=== PATIENT | female | born 2000 | race Caucasian/White ===

== ENCOUNTER 2019-04-28 19:46 | Emergency (ER) | payer OTHER ==
--- NOTE | 2019-04-28 20:11 | ER Document Report ---
ED Medical Screen (RME) - General Chief Complaint: Breathing Difficulty Stated Complaint: DIFFICULTY BREATHING/CHEST TIGHTNESS Time Seen by Provider: 04/28/19 20:05 Primary Care Provider: ROMEL KAY NP [Primary Care Provider] - Follow up as needed Mode of Arrival: Ambulatory Information source: Patient Notes: Patient presents complaining of difficulty breathing and chest discomfort. Patient reports mild cough. Patient states pain does radiate through to her back. No fever nausea vomiting or diarrhea. Patient scribes the pain as a pressure. hx: Asthma, cholecystectomy TRAVEL OUTSIDE OF THE [place] IN LAST 30 DAYS: No - Related Data Allergies/Adverse Reactions: amoxicillin [Amoxicillin] Allergy (Severe, Verified 04/07/14 04:17) Hives Home Medications: albuterol inhaler Past Medical History Pulmonary Medical History: Reports: Hx Asthma Psychiatric Medical History: Reports: Hx Attention Deficit Hyperactivity Disorder - Immunizations Immunizations up to date: Yes Physical Exam - Vital signs Vitals: Temp Pulse Resp BP Pulse Ox 97.9 F 87 20 150/84 H 97 04/28/19 19:51 04/28/19 19:51 04/28/19 19:51 04/28/19 19:51 04/28/19 19:51 - Respiratory Respiratory status: No respiratory distress Chest status: Pain with deep breathing Breath sounds: Normal. No: Rales, Rhonchi, Stridor, Wheezing Course - Vital Signs Vital signs: Temp Pulse Resp BP Pulse Ox 97.9 F 87 20 150/84 H 97 04/28/19 19:51 04/28/19 19:51 04/28/19 19:51 04/28/19 19:51 04/28/19 19:51 Doctor's Discharge - Discharge Referrals: ROMEL KAY NP [Primary Care Provider] - Follow up as needed
--- NOTE | 2019-04-28 21:01 | RADIOLOGY REPORT (SQ) ---
EXAM DESCRIPTION: Chest x-ray PA lateral CLINICAL HISTORY: 18 years Female, cp COMPARISON: 02/02/2014. FINDINGS: Borderline heart size. Mediastinum not widened. No acute lung pleural bone abnormalities.. IMPRESSION: Borderline heart size. No obvious acute findings.
--- NOTE | 2019-04-28 22:29 | EKG REPORT ---
SEVERITY:- NORMAL ECG - SINUS RHYTHM : Confirmed by: Maddie Martin MD 28-Apr-2019 22:28:45
[2019-04-28] MEDS ORDERED: LIDOCAINE 2% VISCOUS SOLN 20 ML UDCUP PO ONE (22:30)
[2019-04-28] MEDS ORDERED: METOCLOPRAMIDE HCL ORAL SOLN 10 MG/10 ML UDCUP PO ONE (22:30)
[2019-04-28] MEDS ORDERED: MAG HYDROX/AL HYDROX/SIMETH SUSP 30 ML UDCUP PO ONE (22:30)
--- NOTE | 2019-04-28 22:30 | ER Document Report ---
HPI - HPI Time Seen by Provider: 04/28/19 20:05 Pain Level: 2 Notes: Patient presents complaining of difficulty breathing and chest discomfort. Patient reports mild cough. Patient states pain does radiate through to her back. No fever nausea vomiting or diarrhea. Patient scribes the pain as a pressure. - REPRODUCTIVE Reproductive: DENIES: : Past Medical History - General Information source: Patient - Social History Smoking Status: Never Smoker Family History: Reviewed & Not Pertinent, Other - Cholelithiasis Patient has suicidal ideation: No Patient has homicidal ideation: No Pulmonary Medical History: Reports: Hx Asthma Psychiatric Medical History: Reports: Hx Attention Deficit Hyperactivity Disorder Past Surgical History: Reports: Hx Cholecystectomy - Immunizations Immunizations up to date: Yes Vertical Provider Document - CONSTITUTIONAL Notes: PHYSICAL EXAMINATION: GENERAL: Well-appearing, morbidly obese well-nourished and in no acute distress. HEAD: Atraumatic, normocephalic. EYES: Pupils equal round and reactive to light, extraocular movements intact, conjunctiva are normal. ENT: Nares patent, oropharynx clear without exudates. Moist mucous membranes. NECK: Normal range of motion, supple without lymphadenopathy LUNGS: Breath sounds clear to auscultation bilaterally and equal. No wheezes rales or rhonchi. HEART: Regular rate and rhythm without murmurs ABDOMEN: Soft, nontender, nondistended abdomen. No guarding, no rebound. No masses appreciated. Female : deferred Musculoskeletal: Normal range of motion, no pitting or edema. No cyanosis. NEUROLOGICAL: Cranial nerves grossly intact. Normal speech, normal gait. Normal sensory, motor exams PSYCH: Normal mood, normal affect. SKIN: Warm, Dry, normal turgor, no rashes or lesions noted. - INFECTION CONTROL TRAVEL OUTSIDE OF THE [place] IN LAST 30 DAYS: No Course - Re-evaluation Re-evalutation: Laboratory 04/29/19 04/29/19 04/29/19 01:10 01:10 01:10 WBC 12.5 H RBC 4.59 Hgb 13.5 Hct 39.2 MCV 85 MCH 29.4 MCHC 34.4 RDW 13.1 Plt Count 272 Lymph % (Auto) 25.8 [place] % (Auto) 8.1 Eos % (Auto) 2.7 Baso % (Auto) 0.4 Absolute Neuts (auto) 7.9 Absolute Lymphs (auto) 3.2 Absolute Monos (auto) 1.0 Absolute Eos (auto) 0.3 Absolute Basos (auto) 0.0 Seg Neutrophils % 63.0 D-Dimer 0.41 Sodium 140.4 Potassium 3.9 Chloride 109 H Carbon Dioxide 22 Anion Gap 9 BUN 9 Creatinine 0.70 Est GFR ( Amer) > 60 Est GFR (MDRD) Non-Af > 60 Glucose 122 H Calcium 8.7 Total Bilirubin 0.3 Direct Bilirubin 0.1 Neonat Total Bilirubin Not Reportable Neonat Direct Bilirubin Not Reportable Neonat Indirect Bili Not Reportable AST 18 ALT 16 Alkaline Phosphatase 56 Total Protein 7.3 Albumin 3.8 Chest X-Ray 04/28/19 20:09 IMPRESSION: Borderline heart size. No obvious acute findings. Patient's work-up today has been unremarkable. She is alert, oriented, vital signs within normal limits and she is not in any acute distress. We did try a GI cocktail to help with her symptoms which did not provide her with any relief. Was unable to rule her out via PERC criteria for pulmonary embolism so we did d raw a d-dimer which was negative. I did discuss with patient the borderline heart size on the chest x-ray. She will close follow-up with her primary care team. ED return precautions discussed. The patient's emergency department workup and current diagnosis were explained to the patient and or family. Follow-up instructions were provided. Medications if prescribed were discussed. Instructions for when to return to the emergency department including specific worrisome symptoms were discussed with the patient and/or family. - Vital Signs Vital signs: Temp Pulse Resp BP Pulse Ox 97.9 F 87 20 150/84 H 97 04/28/19 19:51 04/28/19 19:51 04/28/19 19:51 04/28/19 19:51 04/28/19 19:51 - Laboratory Result Diagrams: 04/29/19 01:10 04/29/19 01:10 Discharge - Discharge Clinical Impression: Epigastric pain Chest pain Qualifiers: Chest pain type: unspecified Qualified Code(s): R07.9 - Chest pain, unspecified Condition: Stable Disposition: HOME, SELF-CARE Additional Instructions: Your work-up here in the emergency department today was unremarkable. I have given you a copy of your labs and chest x-ray for you to follow-up with your primary care provider. Rest, drink plenty of fluids. Return to the emergency department for any new or worsening symptoms. Referrals: ROMEL KAY NP [Primary Care Provider] - Follow up as needed
[2019-04-28 22:38] VITALS: BP 115/77
[2019-04-29 01:34] LABS: ABSOLUTE EOSINOPHILS # (AUTO) 0.3 10^3/uL (0.0-0.6); ABSOLUTE LYMPHOCYTES (AUTO) 3.2 10^3/uL (0.5-4.7); ABSOLUTE NEUT (AUTO) 7.9 10^3/uL (1.7-8.2); BASOPHILS % (AUTO) 0.4 % (0-2); EOSINOPHILS % (AUTO) 2.7 % (0-6); HEMATOCRIT 39.2 % (36.0-47.0); HEMOGLOBIN 13.5 g/dL (12.0-15.5); LYMPHOCYTES % (AUTO) 25.8 % (13-45); MEAN CORPUSCULAR HEMOGLOBIN 29.4 pg (27.0-33.4); MEAN CORPUSCULAR HGB CONC 34.4 g/dL (32.0-36.0); MEAN CORPUSCULAR VOLUME 85 fl (80-97); MONOCYTES % (AUTO) 8.1 % (3-13); PLATELET COUNT 272 10^3/uL (150-450); RED BLOOD COUNT 4.59 10^6/uL (3.72-5.28); RED CELL DISTRIBUTION WIDTH 13.1 % (11.5-14.0); TOTAL CELLS COUNTED % (AUTO) 100 %; WHITE BLOOD COUNT 12.5 10^3/uL (4.0-10.5)
[2019-04-29 01:53] LABS: ALBUMIN 3.8 g/dL (3.7-5.6); ALKALINE PHOSPHATASE 56 U/L (50-135); ANION GAP 9 (5-19); ASPARTATE AMINO TRANSFERASE 18 U/L (5-30); BILIRUBIN,DIRECT 0.1 mg/dL (0.0-0.4); BILIRUBIN,TOTAL 0.3 mg/dL (0.2-1.3); BLOOD UREA NITROGEN 9 mg/dL (7-20); CALCIUM 8.7 mg/dL (8.4-10.2); CARBON DIOXIDE 22 mmol/L (22-30); CHLORIDE 109 mmol/L (98-107); GLUCOSE 122 mg/dL (75-110); POTASSIUM 3.9 mmol/L (3.6-5.0); TOTAL PROTEIN 7.3 g/dL (6.3-8.2)
== END 2019-04-29 02:23 | disposition home or self-care (01) ==
LOC: ER 19:46
DX: R10.13 Epigastric pain (principal); R07.9 Chest pain, unspecified; R06.02 Shortness of breath; R05 Cough; M54.9 Dorsalgia, unspecified; J45.909 Unspecified asthma, uncomplicated
CPT/HCPCS: 93005; 99284; 36415; 85025; 80053; 85379; 71046; 93010; J3490